=== PATIENT | male | born 1985 | race Caucasian/White ===

== ENCOUNTER → 2016-11-15 | Outpatient (CLI) | payer BC | LOC: COL.RAD 12:28 | DX: R10.12 Left upper quadrant pain (principal); N50.812 Left testicular pain; N50.3 Cyst of epididymis; Z87.442 Personal history of urinary calculi ==

== ENCOUNTER 2017-12-04 13:19 | Day surgery (SDC) | payer BC ==
[~2017-12-04] VITALS: Ht 188 cm; Wt 88.5 kg
[2017-12-04] MEDS ORDERED: PRIL40 PO (13:37)
[2017-12-04] MEDS ORDERED: COLESTID 1GM1 G PO (13:37)
[2017-12-04 13:38] VITALS: BP 117/90; PULSE 79; TEMP 98.1
[2017-12-04] MEDS ORDERED: LEVSIN0.125 M1 PO (13:38)
[2017-12-04 15:15] VITALS: BP 109/83; PULSE 79; TEMP 97.9
[2017-12-04 15:30] VITALS: BP 113/81; PULSE 69
[2017-12-04 15:45] VITALS: BP 112/78; PULSE 68
== END 2017-12-04 15:55 | disposition home or self-care (01) ==
LOC: SDCO 13:19
DX: R19.7 Diarrhea, unspecified (principal); K21.0 Gastro-esophageal reflux disease with esophagitis; Z88.5 Allergy status to narcotic agent
CPT/HCPCS: J2250; J3010; J7030